=== PATIENT | female | born 1990 | race Caucasian/White ===

== ENCOUNTER → 2018-10-24 11:01 | Outpatient (CLI) | payer OTHER, SELFPAY ==
--- NOTE | 2018-10-24 | DI.US.S_ITS ---
LIMITED ULTRASOUND OF LEFT BREAST: 10/24/2018 CLINICAL: Palpable left breast lump. Comparison is made to exam dated: 12/02/2015 right breast ultrasound - [facility]. Color flow and real-time ultrasound of the left breast 7 o'clock region were performed. Ko scale images of the real-time examination were reviewed. Targeted ultrasound was performed in the region of the patient's reported focal painful palpable tender area of concern in the left breast at 7:00 position 6 cm from the nipple. No underlying breast mass or abnormality is identified. IMPRESSION: NEGATIVE 1) No ultrasound findings to explain patient's reported focal painful palpable tender area of concern in the left breast at 7:00 position 6 cm from the nipple. Recommend clinical follow-up for further evaluation and management of the patient's reported symptoms. The patient is advised to monitor her breasts and to return sooner for re-evaluation should she feel anything grow or change, or if there is continued clinical concern. 2) There is no sonographic evidence of malignancy in the imaged areas of the breast. Annual screening mammography beginning at age 40 is recommended, unless earlier high-risk screening is warranted due to individual patient risk factors for the development of breast malignancy. 3) Please note that a targeted right breast ultrasound was ordered by the patient's referring provider but refused by the patient at the time of the exam, and thus could not be performed. There is no sonographic evidence of malignancy. This exam was interpreted at Station ID: [id number]. Electronically Signed By: Zack Smith M.D. ecl/:10/24/2018 12:04:18 letter sent: Clinical Evaluation Ultrasound BI-RADS: 1 Negative
== END ==
PROVIDERS: Visit Provider Family Medicine
DX: N63.20 Unspecified lump in the left breast, unspecified quadrant (principal)
CPT/HCPCS: 76642

== ENCOUNTER 2020-05-02 08:49 | Day surgery (SDC) | payer OTHER, MEDICAID, SELFPAY ==
[2020-05-02] VITALS (9 sets, daily range): BP systolic 110–115; BP diastolic 57–75; PULSE 66–79; RESP 11–18; TEMP 36.1–37.1; O2SAT 95–100; BMI 18.0
--- NOTE | 2020-05-02 | PATH_ITS ---
[facility] Accession Number: [id number] . 01 Material submitted: . PART A: cervix - LEFT CERVIX PART B: cervix - RIGHT CERVIX PART C: endocervix - ENDOCERVICAL CURRETINGS . 02 Diagnosis: A. Left Cervix, LEEP Biopsy: Squamous mucosa with reactive features; negative for squamous dysplasia or malignancy. A small focus of possible previous instrumentation is present. A small region of transformation zone is identified. . B. Right Cervix, LEEP Biopsy: Squamous mucosa with patchy parakeratosis and otherwise no significant histomorphologic abnormality; negative for dysplasia or malignancy. Patchy regions suggestive of possible previous instrumentation. No intact transformation zone identified. . C. Endocervical Curettings: Atypical metaplastic squamous mucosa, favor a reactive etiology by immunohistochemistry studies. Negative for p16 block immunostaining. Background of acute and chronic cervicitis/endocervicitis. [facility] 05/09/2020 1414 Local . 02 Comment: . . 02 Electronically signed: . Josie White MD, Pathologist NPI- [id number] . 01 Gross description: . A. Specimen A is received in formalin, labeled left cervix and consists of four unoriented altman smooth portions of cervix, measuring 3.0 x 2.5 x 0.5 cm in aggregate. The margins are inked blue. The specimen is serially sectioned and entirely submitted in cassettes A1-A5. B. Specimen B is received in formalin, labeled right cervix and consists of four unoriented altman-pink smooth portions of cervix, measuring 2.5 x 2.0 x 0.5 cm in aggregate. The margins are inked blue. The specimen is serially sectioned and entirely submitted in cassettes B1-B5. C. Specimen C is received in formalin, labeled endocervical curettings and consists of multiple minute altman-white fragments of soft tissue, 0.5 x 0.4 x 0.2 cm in aggregate. The specimen is filtered and entirely submitted in cassette C1. ([id number]) . /[facility] 05/06/2020 1615 Local . 02 Microscopic: . An immunohistochemical stain for p16 is performed on block C1 to evaluate for block reactivity and is negative for block immunostaining. The control stained with appropriate reactivity. . The absence of p16 block immunostaining mitigates against the presence of high risk HPV DNA in this biopsy. . * This test was developed and its performance characteristics determined by [employer]. It has not been cleared or approved by the U.S. Food and Drug Administration. The FDA has determined that such clearance or approval is not necessary. This test is used for clinical purposes. It should not be regarded as investigational or for research. . 02 Pathologist provided ICD-10: R87.610 . 02 CPT . 749539, 318925, 410317, [id number] Performed at: 01 [facility] [address] [id number] MD Junaid Corona MD Phone: [phone] Performed at: 02 [facility] [address] [place], [place] [id number] MD Sophia Huang MD Phone: [phone]
[2020-05-02 09:23] LABS: COVID19 -Nasal RAPID Negative (Negative)
[2020-05-02] MEDS: LACTATED RINGERS 1,000 ML 100 ML IV (09:35)
--- NOTE | 2020-05-02 10:24 | PM.PREOP ---
Pre-operative Note COVID-19 COVID-19 status: Negative Result date/Date tested (Pos, Neg/Pending): 05/02/20 Interval Note History & Physical reviewed/Exam performed by Physician: Yes Changes to H&P: No
--- NOTE | 2020-05-02 10:47 | SUR.OPER ---
Lithotomy on padded OR bed, head on pillow, arms secured on padded arm boards at <90 degrees abduction. Legs secured in padded yellow fins stirrups.
[2020-05-02] MEDS: FERRIC SUBSULFATE 8 GM SOLUTION 8 ML TOP (11:11)
[2020-05-02] MEDS: LIDOCAINE 1% W/EPI 20 ML INJ (11:11)
[2020-05-02] MEDS: POTASSIUM IODIDE/IODINE 473 ML SOLUTION TOP (11:12)
--- NOTE | 2020-05-02 11:15 | SUR.PHASEI ---
Pt arrived, chin lift needed for 5 minutes for airway patency, now breathing w/o difficulty on own.
--- NOTE | 2020-05-02 11:17 | SUR.PHASEI ---
Report to ABDULAZIZ Perez
--- NOTE | 2020-05-02 11:18 | PM.OP.1 ---
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 Closed appearing cervix, IUD strings visible. Closure Type: primary Specimen(s): other (left cervix, right cervix, endocervical curetting) Estimated Blood Loss (mL): 0 Procedure in detail: After informed consent was obtained, the patient was taken to the operating room. IV sedation was successfully obtained. She was placed in the dorsal lithotomy position, and exam under anesthesia performed with a midline uterus and cervix noted. She was draped in the usual sterile fashion, with prep deferred due to the planned procedure. Coated speculum was inserted into the vagina and the cervix easily visualized. The cervix was prepped with Lugol solution, and the border of the area of poor Lugol's uptake was easily visualized. 1 cc of 1% lidocaine with epinephrine was injected at 9:00 a.m., 12:00 p.m., 3:00 a.m., and 6:00 a.m.. A 15 x 10 mm LEEP loop was used to remove the left and right portions of the cervix, requiring movement of her IUD strings for a complete cone biopsy. Left and right rather than anterior and posterior was performed as the patient's area of HSIL had been at 3:00 a.m., and desired to entirely remove this portion of the specimen intact. An ECC was performed. Good hemostasis was noted, but ball electrocautery used to ablate the surface of the cervix past the cut edges and achieve good hemostasis. Monsel solution was applied with good effect. The patient tolerated the procedure well, and the speculum removed from the vagina. The patient was taken to the PACU in stable condition. Complications: none Post-operative Condition: stable Disposition: PACU Plan for aftercare: Home with routine precautions
[2020-05-02] MEDS: OXYCODONE/ACETAMINOPHEN 5/325 TABLET 1 TAB PO (11:38)
--- NOTE | 2020-05-02 12:12 | SUR.PHASEII ---
pt voided prior to discharge. Denies pain and able to walk. pt was wheeled out to boyfriend Edwardo. No complaints noted.
== END 2020-05-02 12:07 | disposition home or self-care (01) ==
PROVIDERS: Referring Provider Obstetrics & Gynecology; Visit Provider Obstetrics & Gynecology
PROC: 0UBC7ZZ Excision of Cervix, Via Natural or Artificial Opening (ICD-10-PCS; CPT 57522; principal; 2020-05-02 10:15)
DX: R87.610 Atypical squamous cells of undetermined significance on cytologic smear of cervix (ASC-US) (principal); R87.810 Cervical high risk human papillomavirus (HPV) DNA test positive; Z20.822 Contact with and (suspected) exposure to COVID-19
CPT/HCPCS: 57522; 81025; 87635; A9270; J1100; J2405; J2704; J3010

== ENCOUNTER 2021-02-23 09:20 | Emergency (ER) | payer OTHER, MEDICAID, SELFPAY ==
[2021-02-23 09:25] VITALS: BP 128/64; PULSE 87; RESP 15; TEMP 36.7; O2SAT 99; BMI 17.4
--- NOTE | 2021-02-23 09:36 | DI.RAD.S_ITS ---
PROCEDURE: XR FOOT RT MIN 3V INDICATIONS: pain base of right 1st toe, initial injury 3 mo ago TECHNIQUE: 3 views of the foot were acquired. COMPARISON: None. FINDINGS: Bones: No fractures or dislocations. There is mild to moderate degeneration of the 1st metatarsophalangeal joint with joint space narrowing, subchondral sclerosis, and subchondral cystic changes. No suspicious bony lesions. Soft tissues: There is mild periarticular soft tissue swelling at the 1st metatarsophalangeal joint. IMPRESSION: 1. No fracture or dislocation. 2. Mild to moderate degeneration of the 1st metatarsophalangeal joint. Dictated by: Junaid Marshall M.D. on 02/23/2021 at 8:54 Approved by: Junaid Marshall M.D. on 02/23/2021 at 9:03
--- NOTE | 2021-02-23 09:56 | ED_ITS ---
HPI - Extremity Injury (Lower) General Chief Complaint: Extremity Injury, Lower Stated Complaint: possible broken foot Time Seen by Provider: 02/23/21 09:56 Source: patient Mode of arrival: Ambulatory Limitations: no limitations History of Present Illness HPI Narrative: 30-year-old woman with no significant medical history comes in complaining of left foot pain particularly the MTP joint left side that is been worsening over the past 3 months. She describes stubbing her toe 3 months ago having significant pain immobilizing the foot in a boot but yesterday her foot was not immobilized and dog brushed against the foot causing worsening pain today. She comes in for further evaluation. She describes no fevers, cough, chills, abdominal pain, dyspnea, palpitations. She has no swelling in her foot, ankle no difficulty with gait aside from the pain at the MTP joint itself. There is no redness warmth abrasions, contusions or significant swelling. Related Data Home Medications Medication Instructions Recorded Confirmed copper 380 square mm intrauterine See Rx Instructions .ROUTE .COMPLEX 04/29/20 02/23/21 device (ParaGard T 380A) Allergies Allergy/AdvReac Type Severity Reaction Status Date / Time medroxyprogesterone AdvReac Full body Verified 02/23/21 09:35 [From Depo-Provera] pain Review of Systems Review of Systems Narrative: Remainder of complete review of systems is otherwise unremarkable except for that included in the HPI. Patient History Medical History Former smoker IUD (intrauterine device) in place Social History household members: significant other and friend(s) Smoking Status: Former smoker alcohol intake: current Smoking Status: Former smoker alcohol intake frequency: a few times a week Substance Use Type: marijuana Exam Narrative Exam Narrative: General: Alert appropriate in no acute distress Respiratory: Able to speak in full sentences, no obvious respiratory distress Skin: No obvious rashes, warm and dry Neurologic: Grossly intact no obvious asymmetries or abnormalities Psych: appropriate insight and affect, cooperative Extremity: Left foot has some tenderness at the MTP joint without active synovitis, erythema, skin breakdown or evidence of infection. There is no edema and she is neurovascularly intact. Initial Vital Signs Initial Vital Signs: Vital Signs Temperature 98.1 F 02/23/21 09:25 Pulse Rate 87 02/23/21 09:25 Respiratory Rate 15 02/23/21 09:25 Blood Pressure 128/64 02/23/21 09:25 Pulse Oximetry 99 02/23/21 09:25 Course Orders Ordered: ED Orders 02/23/21 09:36 XR foot RT min 3V Stat Vital Signs Vital signs: Vital Signs - 8 hr 02/23/21 09:25 Temperature 98.1 F Pulse Rate 87 Respiratory Rate 15 Blood Pressure 128/64 Pulse Oximetry 99 MDM - Extremity Injury (Lower) Imaging Data xr foot: Radiologist's Impression: FINDINGS:? ? Bones:? No fractures or dislocations.? There is mild to moderate degeneration of the 1st metatarsophalangeal joint with joint space narrowing, subchondral sclerosis, and subchondral cystic changes.? No suspicious bony lesions.? ? Soft tissues:? There is mild periarticular soft tissue swelling at the 1st metatarsophalangeal joint. ? IMPRESSION:? ? 1. No fracture or dislocation. ? 2. Mild to moderate degeneration of the 1st metatarsophalangeal joint.? ? ? Dictated by: Junaid Marshall M.D. on 02/23/2021 at 8:54? ?? [facility] Narrative Medical decision making narrative: 30-year-old woman with pain in the 1st MTP joint left foot. X-ray suggests some minor degenerative changes are. No obvious fractures no evidence of infection or gout. Will refer her to Orthopedic surgery for further follow-up. 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 It does look like there is some mild degenerative changes which is of Radiology description of arthritis. There is no evidence of gout or of other infection. Using a hard-soled shoe may be helpful in alleviating pain. You do not need to use the boot that you are using and continuing to do so may cause more ankle issues. At some point, you will benefit from follow-up with an orthopedic surgeon to see if there is more going on and to help with definitive treatment. If you do state in [facility], [facility] at [phone] is are typical referral option from [facility]. Using 400 mg of ibuprofen (2 [id number] pills) and 1 Tylenol every 6 hours can be very helpful in controlling pain. I hope you feel better Prescriptions: No Action ParaGard T 380A 380 square mm intrauterine device See Rx Instructions .ROUTE .COMPLEX 0RF Label Comments: intra uterine device Rx Instructions: intra uterine Referrals: Miscellaneous,Doctor, MD [Primary Care Provider] -
--- NOTE | 2021-02-23 10:50 | PC.NURSE ---
Hard boot applied to R foot
== END 2021-02-23 10:50 | disposition home or self-care (01) ==
PROVIDERS: Emergency Provider Emergency Medicine
DX: M13.872 Other specified arthritis, left ankle and foot (principal)
CPT/HCPCS: 73630; 99283

== ENCOUNTER → 2021-09-24 17:01 | Outpatient (CLI) | payer OTHER, MEDICAID, SELFPAY ==
--- NOTE | 2021-09-24 | DI.RAD.S_ITS ---
PROCEDURE: XR FOOT RT MIN 3V INDICATIONS: MASS ON RIGHT FOOT TECHNIQUE: Three views of the foot were acquired. COMPARISON: [facility], , XR FOOT RT MIN 3V, 02/23/2021, 9:38. FINDINGS: Bones: No fractures or dislocations. No suspicious bony lesions. Normal mineralization. Mild degeneration at the 1st MTP joint with bunionectomy change. Soft tissues: No tibiotalar joint effusion. Achilles tendon appears normal. IMPRESSION: 1. Mild degeneration at the 1st MTP post right bunionectomy. Dictated by: Gema Tan M.D. on 09/25/2021 at 12:23 Approved by: Gema Tan M.D. on 09/25/2021 at 12:25
--- NOTE | 2021-09-24 | DI.US.S_ITS ---
PROCEDURE: US EXTREMITY NONVASC LOWER RT INDICATIONS: MASS ON RIGHT FOOT TECHNIQUE: Real-time scanning was performed of the right foot , with image documentation. COMPARISON: [facility], CR, XR FOOT RT MIN 3V, 09/24/2021, 17:07. FINDINGS: Ill-defined hypoechoic area measuring approximately 2.5 x 0.3 x 0.7 cm is seen at the palpable area of interest in the plantar aspect of the foot. Mildly increased vascularity is seen. IMPRESSION: Ill-defined hypoechoic lesion within the subcutaneous tissues at the plantar aspect of the foot is of uncertain etiology. Findings may represent focal nonspecific inflammation, foreign body reaction, or fibrosis. Neoplasm is felt to be less likely, but is not entirely excluded. MRI of the foot with and without contrast could be obtained for further evaluation if indicated clinically. Dictated by: Landon Tobar M.D. on 09/25/2021 at 12:17 Approved by: Landon Tobar M.D. on 09/25/2021 at 12:23
== END ==
PROVIDERS: Referring Provider Podiatrist; Visit Provider Podiatrist
DX: M19.071 Primary osteoarthritis, right ankle and foot (principal); R22.41 Localized swelling, mass and lump, right lower limb; M25.571 Pain in right ankle and joints of right foot; Z98.890 Other specified postprocedural states
CPT/HCPCS: 73630; 76882